=== PATIENT | female | born 1985 | race Caucasian/White ===

== ENCOUNTER 2020-10-24 04:45 | Emergency (ER) | payer SELFPAY ==
--- OUTSIDE RECORDS SUMMARY | 2020-10-24 04:48 | XMS REPORT | Continuity of Care Document ---
:1985 Author Organization [facility] t Address [address] [place] [address] Care Team Providers Name Role Phone Arabella Mendoza Attending Clinician Problems This patient has no known problems. Allergies, Adverse Reactions, Alerts This patient has no known allergies or adverse reactions. Medications This patient has no known medications. Procedures This patient has no known procedures. Encounters Start End Encounter Admission Attending Care Care Encounter Source Date/Time Date/Time Type Type Clinicians Facility Department ID 2019-02-25 2019-02-25 Emergency ROSANNA Fuller [id number] 14:24:44 16:24:00 Marisol Sanders [id number] [place] [id number] [place] [id number] Results This patient has no known results.
[2020-10-24] MEDS ORDERED: ONDANSETRON 4 MG/2 ML VIAL ONE (05:33)
[2020-10-24] MEDS ORDERED: MORPHINE 4 MG/ML SYR ONE (05:33)
[2020-10-24 05:46] LABS: Absolute Lymphocytes (CBC) 1.9 K/uL (0.7-4.9); Basophils % 0.9 % (0-1.3); MPV 7.8 fL (7.6-11.3); RBC Red Blood Cell Count 4.36 M/uL (3.86-4.86)
[2020-10-24 06:09] LABS: ALT/SGPT 26 U/L (12-78); AST/SGOT 11 U/L (15-37); Albumin 3.6 g/dL (3.4-5.0); Alkaline Phosphatase 70 U/L (45-117); BUN Blood Urea Nitrogen 13 mg/dL (7-18); Bicarbonate 23 mmol/L (21-32); Bilirubin Direct 0.1 mg/dL (0-0.2); Bilirubin Total 0.4 mg/dL (0.2-1.0); Glucose Level 126 mg/dL (74-106); NT PRO-BNP 87 pg/mL (<125); Potassium 3.4 mmol/L (3.5-5.1); Protein, Total 7.6 g/dL (6.4-8.2); Sodium Level 139 mmol/L (136-145); Troponin (Emerg Dept Use Only) < 0.02 ng/mL (0.0-0.045)
[2020-10-24 06:41] LABS: Protime INR 0.97
--- NOTE | 2020-10-24 07:14 | ER ---
Nurse's Notes [facility] Name: Hetal Dougherty Age: 35 yrs Sex: Female : 1985 Arrival Date: 10/24/2020 Time: 04:48 Bed 19 Private MD: Diagnosis: Costochondrtiis Presentation: 10/24 05:00 Chief complaint: Patient states: chest pain that started at 1 PM yesterday, denies N/V em cough, shortness of breath, or fever. Coronavirus screen: Client denies travel out of the [place] in the last 14 days. Ebola Screen: Patient negative for fever greater than or equal to 101.5 degrees Fahrenheit, and additional compatible Ebola Virus Disease symptoms Patient denies exposure to infectious person. Patient denies travel to an Ebola-affected area in the 21 days before illness onset. No symptoms or risks identified at this time. Initial Sepsis Screen: Does the patient meet any 2 criteria? HR > 90 bpm. No. Patient's initial sepsis screen is negative. Does the patient have a suspected source of infection? No. Patient's initial sepsis screen is negative. Risk Assessment: Do you want to hurt yourself or someone else? Patient reports no desire to harm self or others. Onset of symptoms was October 23, 2020. 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 - Social history:: Smoking status: Patient denies any tobacco usage or history of. Screenin:22 Abuse screen: Denies threats or abuse. Denies injuries from another. Nutritional rr5 screening: No deficits noted. Tuberculosis screening: No symptoms or risk factors identified. Fall Risk IV access (20 points). Total Phelps Fall Scale indicates No Risk (0-24 pts). Assessment: 05:30 General: Appears in no apparent distress. Behavior is calm, cooperative, appropriate fu for age, Denies fever, feeling ill, fatigue, chills. Pain: Complains of pain in chest Pain radiates to left arm Pain currently is 4 out of 10 on a pain scale. Quality of pain is described as aching, Pain began 1 day ago. Neuro: Level of Consciousness is awake, alert, obeys commands, Oriented to person, place, time, situation, Moves all extremities. Gait is steady, Speech is normal, Facial symmetry appears normal, Reports headache Denies weakness numbness. Cardiovascular: Reports chest pain, Denies nausea, syncope, vomiting, Rhythm is sinus rhythm Chest pain is described as Pain is 4 out of 10 on a pain scale. is located in substernal area radiates to left arm(s) began yesterday at 1pm. Respiratory: Respiratory effort is even, unlabored, Respiratory pattern is regular. GI: Patient currently denies abdominal pain, diarrhea, nausea, vomiting. : No signs and/or symptoms were reported regarding the genitourinary system. EENT: No signs and/or symptoms were reported regarding the EENT system. 07:12 Reassessment: Received report from Freeman FOSTER. Pt resting in ED stretcher VSS. Still fu complaints of pain. Orders received. Vital Signs: 05:00 BP 164 / 108; Pulse 100; Resp 20; Temp 98.9; Pulse Ox 100% on R/A; Weight 106.59 kg; em Height 5 ft. 5 in. (165.10 cm); Pain 6/10; 05:30 BP 139 / 91; Pulse 89; Resp 17; Pulse Ox 99% on R/A; Pain 4/10; fu 07:12 BP 134 / 94; Pulse 75; Resp 17; Pulse Ox 99% on R/A; fu 05:00 Body Mass Index 39.11 (106.59 kg, 165.10 cm) em ED Course: 04:48 Patient arrived in ED. es 04:52 Steven Mcknight MD is Attending Physician. tw4 04:57 Freeman Jaramillo RN is Primary Nurse. fu 05:02 Triage completed. em 05:02 Arm band placed on. em 05:22 Patient has correct armband on for positive identification. Bed in low position. Call rr5 light in reach. vehicle monitor technician on. Pulse ox on. NIBP on. 05:25 Inserted saline lock: 20 gauge in right antecubital area, using aseptic technique. fu Blood collected. 05:36 Initial lab(s) drawn, by me, sent to lab. fu 05:36 Patient maintains SpO2 saturation greater than 95% on room air. fu 06:40 CT Chest For PE Angio In Process Unspecified. EDMS 07:03 XRAY Chest (1 view) In Process Unspecified. EDMS 07:32 No provider procedures requiring assistance completed. IV discontinued, intact, fu bleeding controlled, Pressure dressing applied. Administered Medications: 05:32 Drug: Zofran (Ondansetron) 4 mg Route: IVP; Site: right antecubital; fu 06:19 Follow up: Response: No adverse reaction fu 05:33 Drug: morphine 4 mg {Note: 2mg given instead of 4mg per patient's request, MD li notified.} Route: IVP; Site: right antecubital; 06:19 Follow up: Response: Pain is decreased fu 07:19 Drug: TORadol 30 mg Route: IVP; Site: right forearm; fu 07:19 Follow up: Response: No adverse reaction fu Outcome: 07:13 Discharge ordered by . tw4 07:32 Discharged to home ambulatory. fu 07:32 Condition: stable 07:32 Discharge instructions given to patient, Instructed on discharge instructions, Prescriptions given X 1. 07:33 Patient left the ED. fu Signatures: Dispatcher [employer] Lilli Horowitz Edgar, RN RN Freeman Jaramillo RN RN Steven Herrera MD MD tw4 Ari Phelps RN RN rr5 Corrections: (The following items were deleted from the chart) 05:35 05:33 morphine 4 mg IVP in right antecubital fu fu
--- NOTE | 2020-10-24 07:14 | EDPHYS ---
Physician Documentation [facility] Name: Hetal Dougherty Age: 35 yrs Sex: Female : 1985 Arrival Date: 10/24/2020 Time: 04:48 Bed 19 Private MD: ED Physician Steven Mcknight HPI: 10/24 05:34 This 35 yrs old Female presents to ER via Ambulatory with complaints of Chest tw4 Pain. 05:34 The patient or guardian reports chest pain that is located primarily in the substernal tw4 area. The pain radiates to the left arm. Associated signs and symptoms: The patient has no apparent associated signs or symptoms. The chest pain is described as dull, a heaviness. Duration: The patient or guardian reports a single episode, that is now resolved. Modifying factors: The symptoms are alleviated by nothing. the symptoms are aggravated by nothing. Severity of pain: At its worst the pain was moderate in the emergency department the pain is unchanged. The patient has not experienced similar symptoms in the past. 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 - Social history:: Smoking status: Patient denies any tobacco usage or history of. ROS: 05:34 Constitutional: Negative for fever, chills, and weight loss, Eyes: Negative for injury, tw4 pain, redness, and discharge, Respiratory: Negative for shortness of breath, cough, wheezing, and pleuritic chest pain, Abdomen/GI: Negative for abdominal pain, nausea, vomiting, diarrhea, and constipation, Back: Negative for injury and pain, MS/Extremity: Negative for injury and deformity, Skin: Negative for injury, rash, and discoloration, Neuro: Negative for headache, weakness, numbness, tingling, and seizure. 05:34 Cardiovascular: Positive for chest pain. Exam: 07:11 Constitutional: This is a well developed, well nourished patient who is awake, alert, tw4 and in no acute distress. Head/Face: Normocephalic, atraumatic. Neck: Trachea midline, no thyromegaly or masses palpated, and no cervical lymphadenopathy. Supple, full range of motion without nuchal rigidity, or vertebral point tenderness. No Meningismus. Cardiovascular: Regular rate and rhythm with a normal S1 and S2. No gallops, murmurs, or rubs. Normal PMI, no JVD. No pulse deficits. Respiratory: Lungs have equal breath sounds bilaterally, clear to auscultation and percussion. No rales, rhonchi or wheezes noted. No increased work of breathing, no retractions or nasal flaring. Abdomen/GI: Soft, non-tender, with normal bowel sounds. No distension or tympany. No guarding or rebound. No evidence of tenderness throughout. Back: No spinal tenderness. No costovertebral tenderness. Full range of motion. Skin: Warm, dry with normal turgor. Normal color with no rashes, no lesions, and no evidence of cellulitis. MS/ Extremity: Pulses equal, no cyanosis. Neurovascular intact. Full, normal range of motion. Neuro: Awake and alert, GCS 15, oriented to person, place, time, and situation. Cranial nerves II-XII grossly intact. Motor strength 5/5 in all extremities. Sensory grossly intact. Cerebellar exam normal. Normal gait. Psych: Awake, alert, with orientation to person, place and time. Behavior, mood, and affect are within normal limits. 07:11 Chest/axilla: Palpation: tenderness, of the anterior aspect of left upper chest, that totally reproduces the patient's complaints. Vital Signs: 05:00 BP 164 / 108; Pulse 100; Resp 20; Temp 98.9; Pulse Ox 100% on R/A; Weight 106.59 kg; em Height 5 ft. 5 in. (165.10 cm); Pain 6/10; 05:30 BP 139 / 91; Pulse 89; Resp 17; Pulse Ox 99% on R/A; Pain 4/10; fu 07:12 BP 134 / 94; Pulse 75; Resp 17; Pulse Ox 99% on R/A; fu 05:00 Body Mass Index 39.11 (106.59 kg, 165.10 cm) em MDM: 05:22 Patient medically screened. 10/24 05:04 Order name: Basic Metabolic Panel; Complete Time: 06:48 10/24 06:48 Interpretation: K 3.4; CL 108; GLUC 126. 10/24 05:04 Order name: CBC with Diff; Complete Time: 06:48 10/24 06:49 Interpretation: Within normal limits. 10/24 05:04 Order name: LFT's; Complete Time: 06:48 10/24 06:49 Interpretation: Normal except: AST 11; GLOB 4.0; A/G 0.9. 10/24 05:04 Order name: Magnesium; Complete Time: 06:48 10/24 06:49 Interpretation: Within normal limits: MG 2.0. 10/24 05:04 Order name: NT PRO-BNP; Complete Time: 06:48 10/24 06:49 Interpretation: Within normal limits: NT PRO-BNP 87. 10/24 05:04 Order name: PT-INR; Complete Time: 06:48 10/24 06:49 Interpretation: Within normal limits: PT 11.1. 10/24 05:04 Order name: Troponin (emerg Dept Use Only); Complete Time: 06:48 10/24 06:49 Interpretation: Within normal limits: TROPED < 0.02. 10/24 05:04 Order name: XRAY Chest (1 view) 10/24 05:04 Order name: EKG; Complete Time: 05:05 10/24 05:04 Order name: Cardiac monitoring; Complete Time: 05:11 10/24 05:20 Order name: CT Chest For PE Angio 10/24 05:04 Order name: EKG - Nurse/Tech; Complete Time: 05:11 10/24 05:04 Order name: IV Saline Lock; Complete Time: 05:23 10/24 05:04 Order name: Labs collected and sent; Complete Time: 05:23 10/24 05:04 Order name: O2 Per Protocol; Complete Time: 05:11 10/24 05:04 Order name: O2 Sat Monitoring; Complete Time: 05:11 4 EC:11 Rate is 91 beats/min. Rhythm is regular. QRS [place] is Normal. [place] interval is normal. QRS tw4 interval is normal. QT interval is normal. No Q waves. T waves are Normal. No ST changes noted. Clinical impression: Normal ECG. Interpreted by me. Reviewed by me. Administered Medications: 05:32 Drug: Zofran (Ondansetron) 4 mg Route: IVP; Site: right antecubital; fu 06:19 Follow up: Response: No adverse reaction fu 05:33 Drug: morphine 4 mg {Note: 2mg given instead of 4mg per patient's request, MD li notified.} Route: IVP; Site: right antecubital; 06:19 Follow up: Response: Pain is decreased fu 07:19 Drug: TORadol 30 mg Route: IVP; Site: right forearm; fu 07:19 Follow up: Response: No adverse reaction fu Disposition: 10/24/20 07:13 Discharged to Home. Impression: Costochondrtiis. - Condition is Stable. - Discharge Instructions: Costochondritis. - Prescriptions for Ibuprofen 800 mg Oral Tablet - take 1 tablet by ORAL route every 12 hours As needed take with food; 20 tablet. - Medication Reconciliation Form, Thank You Letter, Antibiotic Education, Prescription Opioid Use form. - Follow up: Private Physician; When: Upon discharge from the Emergency Department; Reason: Recheck today's complaints, Continuance of care, Re-evaluation by your physician. - Problem is new. - Symptoms have improved. Signatures: Dispatcher [employer] Marcus Christiansen RN Freeman Dacosta RN Steven Guevara MD MD tw4 Corrections: (The following items were deleted from the chart) 07:11 05:34 Constitutional: This is a well developed, well nourished patient who is awake, tw4 alert, and in no acute distress. Head/Face: Normocephalic, atraumatic. Chest/axilla: Normal chest wall appearance and motion. Nontender with no deformity. No lesions are appreciated. Cardiovascular: Regular rate and rhythm with a normal S1 and S2. No gallops, murmurs, or rubs. Normal PMI, no JVD. No pulse deficits. Respiratory: Lungs have equal breath sounds bilaterally, clear to auscultation and percussion. No rales, rhonchi or wheezes noted. No increased work of breathing, no retractions or nasal flaring. Abdomen/GI: Soft, non-tender, with normal bowel sounds. No distension or tympany. No guarding or rebound. No evidence of tenderness throughout. Back: No spinal tenderness. No costovertebral tenderness. Full range of motion. Skin: Warm, dry with normal turgor. Normal color with no rashes, no lesions, and no evidence of cellulitis. MS/ Extremity: Pulses equal, no cyanosis. Neurovascular intact. Full, normal range of motion. Neuro: Awake and alert, GCS 15, oriented to person, place, time, and situation. Cranial nerves II-XII grossly intact. Motor strength 5/5 in all extremities. Sensory grossly intact. Cerebellar exam normal. Normal gait. tw4 07:33 07:13 10/24/2020 07:13 Discharged to Home. Impression: Costochondrtiis. Condition is fu Stable. Forms are Medication Reconciliation Form, Thank You Letter, Antibiotic Education, Prescription Opioid Use. Follow up: Private Physician; When: Upon discharge from the Emergency Department; Reason: Recheck today's complaints, Continuance of care, Re-evaluation by your physician. Problem is new. Symptoms have improved. tw4
[2020-10-24] MEDS ORDERED: KETOROLAC 30 MG/ML INJ ONE (07:33)
--- NOTE | 2020-10-24 08:35 | RAD REPORT ---
EXAM DESCRIPTION: RAD - Chest Single View - 10/24/2020 7:03 am CLINICAL HISTORY: CHEST PAIN COMPARISON: Portable May 2016 TECHNIQUE: AP portable chest image was obtained 10/24/2020 7:03 am . FINDINGS: Lung volumes are low. No peripheral mass or consolidation. Heart, vasculature and lung [place] are all accentuated by the shallow inspiration and portable technique. Significant failure or v olume overload are doubtful. Trachea is midline. No measurable pleural effusion and no pneumothorax. No acute bony abnormality seen. No acute aortic findings suspected. IMPRESSION: No acute cardiopulmonary process suspected. Prominence of the heart, vasculature and lung markings likely due to shallow inspiration and portable technique rather than any significant interstitial infiltrate, failure or volume overload process.
--- NOTE | 2020-10-24 12:24 | RAD REPORT ---
EXAM DESCRIPTION: CT - Chest For Pe Angio - 10/24/2020 7:11 am COMPARISON: None. CLINICAL HISTORY: [facility] MAIN CHEST PAIN TECHNIQUE: CT images through the chest with IV contrast using the pulmonary embolus protocol. Multip lanar reformats. Automated exposure control was utilized on this examination as a dose lowering elliott hnique. FINDINGS: Pulmonary arteries and vascular: Limited exam due to motion artifact. No large proximal fi lling defects. Heart and mediastinum: Heart size is normal. No lymphadenopathy. Thyroid gland: Visualized portions are normal. Lungs: Clear. Airways: No filling defects. No bronchiectasis. Pleura: No pneumothorax. No significant pleural effusion. Subphrenic structures: Within normal limits. Musculoskeletal and soft tissues: Within normal limits for age. IMPRESSION: No evidence of large proximal pulmonary embolus or other acute chest process. Exam is li mited in evaluation of distal emboli due to motion artifact. Electronically signed by: Booker Chirinos MD 10/24/2020 6:48 AM CDT Due to temporary technical issues with the PACS/Fluency reporting system, reports are being signed by the in house radiologists without review as a courtesy to insure prompt reporting. The interpreting radiologist is fully responsible for the content of the report.
== END 2020-10-24 07:33 | disposition home or self-care (01) ==
LOC: ER 04:45
DX: M94.0 Chondrocostal junction syndrome [Tietze] (principal); I10 Essential (primary) hypertension
CPT/HCPCS: 36415; 71045; 71275; 80048; 80076; 83735; 83880; 84484; 85025; 85610; 93005; 99285; J2405; Q9967